=== PATIENT | male | born 1965 | race Hispanic/Latino ===

== ENCOUNTER 2016-05-29 06:23 | Outpatient (CLI) | payer BC ==
[2016-05-29 07:17] LABS: Hemoglobin A1c 6.8 % (4.0-6.0)
[2016-05-29 07:24] LABS: ALT (SGPT) 19 U/L (0-55); AST (SGOT) 13 U/L (5-34); Alkaline Phosphatase 57 U/L (40-150); Anion Gap 15 mmol/L (10-20); BUN (Urea Nitrogen) 18 mg/dL (8.4-25.7); Bilirubin, Total 0.5 mg/dL (0.2-1.2); Calc. Creatinine Clearance 0 mL/min (70-130); Calcium 9.7 mg/dL (7.8-10.44); Carbon Dioxide 28 mmol/L (22-29); Chloride 104 mmol/L (98-107); Estimated GFR-MDRD Greater than 90; Globulin 2.7 g/dL (2.4-3.5); LDL Cholesterol, Calculated 112 mg/dL; Protein, Total 7.2 g/dL (6.0-8.3)
[2016-05-29 08:56] LABS: Bilirubin Negative (Negative); Blood, Urine Negative (Negative); Glucose, Urine (Dipstick) Negative (Negative); Ketone, Urine Negative (Negative); Nitrite Negative (Negative); Protein, Urine (Dipstick) Negative (Neg-Trace); Urobilinogen 0.2 mg/dL (0.2-1.0)
[2016-05-29 09:20] LABS: Bacteria/HPF Rare-Few HPF (None Seen); RBC/HPF None Seen HPF (0-3); Squamous Epithelial 0-3 HPF (0-3); WBC/HPF 0-3 HPF (0-3)
[2016-05-29 17:56] LABS: Microalbumin Urine Less than 1.0 mg/dL (0.5-50.0)
== END 2016-05-29 06:24 | disposition home or self-care (01) ==
LOC: BURLAB 06:23
PROVIDERS: ATTEND Family Medicine
DX: E11.9 Type 2 diabetes mellitus without complications (principal); E78.2 Mixed hyperlipidemia
CPT/HCPCS: 36415; 80053; 80061; 81001; 82043; 83036

== ENCOUNTER 2016-12-02 06:47 | Outpatient (CLI) | payer BC ==
[2016-12-02 07:23] LABS: Hemoglobin A1c 6.8 % (4.0-6.0)
[2016-12-02 07:45] LABS: ALT (SGPT) 26 U/L (8-55); AST (SGOT) 16 U/L (5-34); Albumin 4.4 g/dL (3.5-5.0); Alkaline Phosphatase 63 U/L (40-150); Anion Gap 15 mmol/L (10-20); BUN (Urea Nitrogen) 25 mg/dL (8.4-25.7); Bilirubin, Total 0.4 mg/dL (0.2-1.2); Calc. Creatinine Clearance 0 mL/min (70-130); Calcium 9.3 mg/dL (7.8-10.44); Carbon Dioxide 24 mmol/L (22-29); Cardiac Risk 3.6 (Less than 4.5); Chloride 103 mmol/L (98-107); Cholesterol 140 mg/dl (< 200 Desired); Estimated GFR-MDRD 86; Globulin 2.4 g/dL (2.4-3.5); Glucose 141 mg/dL (70-105); HDL Cholesterol 39 mg/dL (>60 Neg Risk); LDL Cholesterol, Calculated 76 mg/dL; Potassium 4.2 mmol/L (3.5-5.1); Protein, Total 6.8 g/dL (6.0-8.3); Sodium 138 mmol/L (136-145); Triglycerides 127 mg/dL (Less than 150)
== END 2016-12-02 06:48 | disposition home or self-care (01) ==
LOC: BURLAB 06:47
PROVIDERS: ATTEND Family Medicine
DX: E78.2 Mixed hyperlipidemia (principal); E11.9 Type 2 diabetes mellitus without complications
CPT/HCPCS: 36415; 80053; 80061; 83036

== ENCOUNTER 2022-04-01 14:35 | Emergency (ER) | payer BC ==
[2022-04-01] MEDS ORDERED: Boostrix 0.5 ML (Tdap) VIAL (>/=7 yrs of age) ONE (15:19)
[2022-04-01] MEDS ORDERED: Lidocaine 2% PF 5 ML VIAL ONE (15:19)
== END 2022-04-01 17:01 | disposition home or self-care (01) ==
LOC: BURERS 14:35
DX: S01.81XA Laceration without foreign body of other part of head, initial encounter (principal); E11.9 Type 2 diabetes mellitus without complications; E78.00 Pure hypercholesterolemia, unspecified; I10 Essential (primary) hypertension; W11.XXXA Fall on and from ladder, initial encounter
CPT/HCPCS: 12013; 90471; 90715; J2001

== ENCOUNTER 2022-04-06 14:32 | Emergency (ER) | payer BC ==
[2022-04-06] MEDS ORDERED: Bacitracin 1 PK ONE (14:59)
== END 2022-04-06 15:09 | disposition home or self-care (01) ==
LOC: BURERS 14:32
DX: S01.81XD Laceration without foreign body of other part of head, subsequent encounter (principal); E11.9 Type 2 diabetes mellitus without complications; E78.00 Pure hypercholesterolemia, unspecified; I10 Essential (primary) hypertension; Z79.84 Long term (current) use of oral hypoglycemic drugs; Z79.899 Other long term (current) drug therapy; W11.XXXD Fall on and from ladder, subsequent encounter